=== PATIENT | male | born 1975 | race Hispanic/Latino ===

== ENCOUNTER → 2017-07-22 | Emergency (ER) | payer BC ==
[~2017-07-22] VITALS: Ht 182.9 cm; Wt 133.8 kg
[~2017-07-22] MED LIST: AMLODIPINE BESYLATE 5 MG TAB PO ONE; CIPRO500 MG PO; CIPROFLOXACIN 400 MG/D5W 200ML BAG IV ONE; CLONIDINE HCL 0.1 MG TAB PO ONE; FLAGYL500 MG PO; HYDRALAZINE HCL 20 MG/ML VIAL IV ONE; METRONIDAZOLE 500MG/NS 100ML IV ONE; MORPHINE SULFATE 4 MG/ML SYR IV ONE; PROMETHAZINE HCL (IM) 25 MG/ML VIAL IM ONE; SODIUM CHLORIDE 0.9% 1000ML 1,000 ML ONE; TYLENOL WITH C1 EACH PO; ZOFRAN ODT4 MG SL
[2017-07-23 05:25] VITALS: BP 173/88
== END | disposition home or self-care (01) ==
LOC: FSED 22:31
DX: R10.11 Right upper quadrant pain (principal); R10.13 Epigastric pain; R11.2 Nausea with vomiting, unspecified; K80.62 Calculus of gallbladder and bile duct with acute cholecystitis without obstruction
CPT/HCPCS: 99284; J2270; J2550; J7030